=== PATIENT | female | born 1950 | race Caucasian/White ===

== ENCOUNTER 2016-12-12 11:04 | Emergency (ER) | payer MEDICARE, OTHER ==
[~2016-12-12] VITALS: Ht 162.6 cm; Wt 62.0 kg
[2016-12-12] MEDS ORDERED: IBUP800T23 PO (11:21)
[2016-12-12] MEDS ORDERED: LISI-515 PO (11:21)
[2016-12-12] MEDS ORDERED: LYRI150C PO (11:21)
[2016-12-12 11:22] VITALS: BP 173/87; PULSE 84; RESP 16; TEMP 97.7; O2SAT 97
[2016-12-12] MEDS ORDERED: PRED20 PO (11:37)
--- NOTE | 2016-12-12 11:42 | PD ---
HPI . Fall 2 weeks ago Chief Complaint: Fall Time Seen by Provider: 11:25 Travel History International Travel<30 days: No Contact w/Intl Traveler<30days: No Traveled to known affect area: No History of Present Illness HPI 65-year-old female presents emergency department for evaluation of a fall that occurred 2 weeks ago when she was in [place]. Patient states the left lateral aspect of her neck down to her elbow was painful shortly afterwards. She thought that it would resolve but it is getting worse. Patient has full range of motion in both upper extremities. Patient denies any fevers, chills, malaise, nausea, vomiting, diarrhea or headache. Patient is neurovascularly intact in both upper extremities. Patient only major medical history is fibromyalgia. She takes Lyrica daily. The pain in the neck originates in the left lateral aspect close to the skull and radiates down the left arm. Patient has full range of motion of her neck with no neck stiffness. PFSH Past Medical History ?: Not Social History Alcohol Use: No Tobacco Use: Yes Substance Use: No Allergies-Medications (Allergen,Severity, Reaction): Coded Allergies: No Known Allergies (Unverified , 12/12/16) Reported Meds & Prescriptions Reported Meds & Active Scripts Active Reported Lisinopril 20 Mg Tab 20 Mg PO DAILY Ibuprofen 800 Mg Tab 800 Mg PO Q6HR PRN Lyrica (Pregabalin) 150 Mg Cap 150 Mg PO TID Review of Systems Except as stated in HPI: all other systems reviewed are Neg Physical Exam Narrative GENERAL: Well-nourished, well-developed 65-year-old female patient in no acute distress. SKIN: Focused skin assessment warm/dry. HEAD: Normocephalic. Atraumatic EYES: No scleral icterus. No injection or drainage. NECK: Supple, trachea midline. No JVD or lymphadenopathy. CARDIOVASCULAR: Regular rate and rhythm without murmurs, gallops, or rubs. Radial pulses 2+ bilaterally. RESPIRATORY: Breath sounds equal bilaterally. No accessory muscle use. GASTROINTESTINAL: Abdomen soft, non-tender, nondistended. MUSCULOSKELETAL: Full range of motion in both upper extremities. Plant Superintendent strength equal. Full range of motion with flexion and extension and rotation and neck. No neck stiffness. No cyanosis, or edema. BACK: Nontender without obvious deformity. No CVA tenderness. Data Data Last Documented VS Vital Signs Date Time Temp Pulse Resp B/P (MAP) Pulse Ox O2 Delivery O2 Flow Rate FiO2 12/12/16 11:22 97.7 84 16 173/87 (844) 97 MDM Medical Decision Making Medical Screen Exam Complete: Yes Emergency Medical Condition: Yes Differential Diagnosis Differential diagnosis includes but not limited to contusion left upper arm, cervical radiculopathy, muscle spasms Narrative Course 65-year-old female presents emergency department for evaluation of left arm pain after falling 2 weeks ago. Patient states the pain wasn't that bad when she fell but is getting progressively worse. Patient describes the pain as burning in sensation. The pain originates in the left lateral aspect of the neck near the skull and shoots down the arm to the elbow. Patient has equal crop or grain farmworker strength. Both upper extremities are neurovascularly intact. No erythema or edema. No ecchymosis or signs or symptoms of trauma. Patient's only major medical history is fibromyalgia and she takes Lyrica daily. Based on patient's symptoms, vital sign review and physical exam it is not necessary to admit the patient to the hospital or keep the patient in the emergency department for further evaluation. Patient will be discharged home. Patient will be given an IM injection of Toradol, IM injection of Norflex and a prescription for prednisone discharged home Diagnosis Primary Impression: Cervical radicular pain Referrals: Primary Care Physician Patient Instructions: Cervical Radiculopathy (ED), General Instructions Additional Instructions: Please return to emergency department if your symptoms return or worsen. Follow up with your primary care provider. Take medications as prescribed. Med/Other Pt SpecificInfo: Prescription(s) given Scripts Prednisone (Prednisone) 20 Mg Tab 40 MG PO DAILY for 5 Days, TAB 0 Refills Take 40 mg (2 tablets) daily for 5 days Prov: AlanMaria Fernanda 12/12/16 Disposition: 01 DISCHARGE HOME Condition: Stable Maria Fernanda Phillips Dec 12, 2016 11:42
[2016-12-12] MEDS ORDERED: KETOROLAC TROMETHAMINE 60 MG/2 ML (IM) VIAL IM ONE (11:45)
[2016-12-12] MEDS ORDERED: ORPHENADRINE INJ 60 MG/2 ML AMP IM ONE (11:45)
== END 2016-12-12 15:56 | disposition home or self-care (01) ==
LOC: PHEFT 11:04
DX: M54.2 Cervicalgia (principal); Z91.81 History of falling; F17.200 Nicotine dependence, unspecified, uncomplicated
CPT/HCPCS: 96372; 99284; J1885; J2360